=== PATIENT | female | born 1995 | race Caucasian/White ===

== ENCOUNTER → 2016-04-12 | Outpatient (CLI) | payer OTHER ==
[2016-04-12 13:48] LABS: BASOPHIL # 0.1 K/uL (0.0-0.2); BASOPHIL % 0.7 %; EOSINOPHIL # 0.1 K/uL (0.0-0.5); EOSINOPHIL % 1.4 %; HEMATOCRIT 41.4 % (33.0-46.0); HEMOGLOBIN 13.8 g/dL (11.0-15.0); IMMATURE GRANULOCYTE % 0.4 %; LYMPHOCYTE # 0.8 K/uL (0.8-4.0); LYMPHOCYTE % 11.3 %; MCH 28.7 pg (27.0-34.0); MCHC 33.3 gm/dL (32.0-36.5); MCV 86.1 fl (83.0-98.0); MONOCYTE # 0.5 K/uL (0.0-1.0); MPV 9.1 fl (9.4-12.4); NEUTROPHIL # (ANC) 5.7 K/uL (1.8-7.8); NEUTROPHIL % 79.2 %; NRBC % 0 /100WBC (0-0.00); PLATELET COUNT 282 K/uL (150-450); RBC 4.81 M/uL (3.50-5.00); RDW-CV 11.9 % (11.9-14.6); WBC 7.2 K/uL (4.0-11.0)
[2016-04-12 14:06] LABS: ALBUMIN 3.6 gm/dL (3.5-5.0); TOTAL PROTEIN 7.9 g/dL (6.0-8.4)
[2016-04-12 14:07] LABS: TOTAL BILIRUBIN 0.5 mg/dL (0.0-1.5)
== END ==
LOC: GLAB 12:42
PROVIDERS: Specialist
DX: K50.90 Crohn's disease, unspecified, without complications (principal); Z79.899 Other long term (current) drug therapy

== ENCOUNTER → 2016-06-20 | Outpatient (CLI) | payer OTHER ==
[2016-06-20 14:32] LABS: BASOPHIL % 0.7 %; EOSINOPHIL # 0.1 K/uL (0.0-0.5); EOSINOPHIL % 1.8 %; HEMATOCRIT 38.3 % (33.0-46.0); HEMOGLOBIN 12.5 g/dL (11.0-15.0); IMMATURE GRANULOCYTE % 0.2 %; LYMPHOCYTE # 0.6 K/uL (0.8-4.0); LYMPHOCYTE % 10.4 %; MCH 27.8 pg (27.0-34.0); MCHC 32.6 gm/dL (32.0-36.5); MCV 85.1 fl (83.0-98.0); MONOCYTE # 0.4 K/uL (0.0-1.0); MONOCYTE % 6.5 %; NEUTROPHIL % 80.4 %; NRBC % 0 /100WBC (0-0.00); PLATELET COUNT 293 K/uL (150-450); RDW-CV 12.4 % (11.9-14.6); WBC 6.2 K/uL (4.0-11.0)
[2016-06-20 14:51] LABS: ALBUMIN 3.3 gm/dL (3.5-5.0); ALK PHOS 75 IU/L (33-138); ALT 25 IU/L (12-78); AST 20 IU/L (10-40); TOTAL PROTEIN 7.4 g/dL (6.0-8.4)
[2016-06-20 14:52] LABS: TOTAL BILIRUBIN 0.3 mg/dL (0.0-1.5)
== END | disposition disaster alternative care site (69) ==
LOC: GLAB 13:58
PROVIDERS: Specialist
DX: K50.90 Crohn's disease, unspecified, without complications (principal); Z79.899 Other long term (current) drug therapy